=== PATIENT | male | born 1950 | race Caucasian/White ===

== ENCOUNTER 2020-06-15 10:48 | Emergency (ER) | payer MEDICARE, BC ==
[~2020-06-15] VITALS: Ht 172.7 cm; Wt 120.0 kg
--- NOTE | 2020-06-15 11:15 | PHYS DOC ---
Past History Past Medical History: Anemia, CAD, Diabetes, DVT, High Cholesterol, Hypertension, Hypothyroid, Renal Disease (Stage 3) Additional Past Medical Histor: Parkinsonism, Factor V leiden, Sleep apnea, Steatosis of liver Additional Past Surgical Histo: B shoulder, trigger fingers Smoking: Quit Greater Than 1 Year Alcohol Use: None Drug Use: None General Adult EDM: Chief Complaint: SHORTNESS OF BREATH HPI: HPI: Patient is a [age] year old [sex] who presents with [] Review of Systems: Review of Systems: Constitutional: Denies fever or chills Eyes: Denies redness or eye pain HENT: Denies nasal congestion or sore throat Respiratory: Denies cough or shortness of breath Cardiovascular: Denies chest pain or palpitations GI: Denies abdominal pain, nausea, or vomiting : Denies dysuria or hematuria Musculoskeletal: Denies back pain or joint pain Integument: Denies rash or skin lesions Neurologic: Denies headache, focal weakness or sensory changes Complete systems were reviewed and found to be within normal limits, except as documented in this note. Heart Score: Risk Factors: Risk Factors: DM, Current or recent (<one month) smoker, HTN, HLP, family history of CAD, obesity. Risk Scores: Score 0 - 3: 2.5% MACE over next 6 weeks - Discharge Home Score 4 - 6: 20.3% MACE over next 6 weeks - Admit for Clinical Observation Score 7 - 10: 72.7% MACE over next 6 weeks - Early Invasive Strategies Current Medications: Current Meds: Current Medications Medications (Trade) Dose Ordered Sig/Alyse Start Time Stop Time Status Last Admin Dose Admin Dexamethasone Sodium Phosphate (Decadron) 10 mg 1X ONCE 06/15/20 11:15 06/15/20 11:16 UNV Sodium Chloride 1,000 ml @ 1,000 mls/hr 1X ONCE 06/15/20 11:00 06/15/20 11:59 UNV Physical Exam: PE: Constitutional: Well developed, well nourished, no acute distress, non-toxic appearance HENT: Normocephalic, atraumatic Eyes: PERRL, EOMI, conjunctiva normal, no discharge Neck: Normal range of motion, no tenderness, supple Lungs & Thorax: No respiratory distress, equal chest rise and fall Abdomen: Soft, no tenderness Skin: Warm, dry, no erythema, no rash Back: No tenderness, no CVA tenderness Extremities: No tenderness, ROM intact, no edema Neurologic: Alert and oriented X 3, normal motor function, normal sensory function, no focal deficits noted Psychologic: Affect normal, judgment normal EKG: EKG: @1147 NSR at 73bpm, NO ST elevation, QRS 100ms, QT/QTc 404/449ms Radiology/Procedures: Radiology/Procedures: PROCEDURE: CHEST AP ONLY CHEST AP ONLY History: Reason: dyspnea, hypoxia, COVID + / Spl. Instructions: / History: Comparison: None. Findings:Multifocal ill-defined and patchy pulmonary opacities bilaterally. Possible small right pleural effusion. No pneumothorax. Enlarged cardiac size. Impression: 1. Multifocal pulmonary opacities, may represent pneumonia including viral pneumonia. 2. Possible small right pleural effusion. Electronically signed by: Vic Hernandez DO (06/15/2020 12:30 PM) [id number] Course & Med Decision Making: Course & Med Decision Making Pertinent Labs and Imaging studies reviewed. (See chart for details) [] Dragon Disclaimer: Dragfausto Disclaimer: This electronic medical record was generated, in whole or in part, using a voice recognition dictation system. Departure Departure: Impression: Primary Impression: COVID-19 Additional Impressions: Hypoxia Lactic acidosis Hx of factor V Leiden mutation Disposition: 05 TRANSFER OTHER ([facility]) Admitting Physician: Falguni Herr Condition: GUARDED Referrals: KATRINA GRIFFIN (PCP) COVID-19 Assessment COVID-19 Patient Risks: Age 65 or older: Yes Sign of co-morbidity: Yes Exp to person + for COVID: Yes Exp to PUI: No Travel from affected area: No Lower respiratory symptoms: Yes Fever: Yes Other: Yes PPE Use: Full PPE with N95 mask or PAPR: Yes Critical Care Time Critical care time was 30 minutes which includes time at bedside, spent in discussion of patient's care with specialists and/or family members, with interpretation of laboratory and/or radiological studies and is exclusive of procedures. ROBER WEBB DO Jun 15, 2020 11:15
[2020-06-15 11:40] LABS: BASO % 0 % (0-3); EOS % 0 % (0-3); HEMATOCRIT 28.3 % (39.0-53.0); HEMOGLOBIN 9.4 g/dL (13.0-17.5); LYMPH # 0.5 x10^3/uL (1.0-4.8); LYMPH % 9 % (24-48); MEAN CORPUSCULAR HEMOGLOBIN 30 pg (25-35); MEAN CORPUSCULAR HGB CONC 33 g/dL (31-37); MEAN CORPUSCULAR VOLUME 91 fL (79-100); MONO # 0.4 x10^3/uL (0.0-1.1); MONO % 6 % (0-9); NEUT # 5.5 x10^3uL (1.8-7.7); NEUT % 86 % (31-73); PLATELET COUNT 254 x10^3/uL (140-400); RED BLOOD COUNT 3.11 x10^6/uL (4.30-5.70); RED CELL DISTRIBUTION WIDTH 15.3 % (11.5-14.5); WHITE BLOOD COUNT 6.5 x10^3/uL (4.0-11.0)
[2020-06-15 11:54] LABS: CALCIUM 8.3 mg/dL (8.5-10.1); CREATININE 2.4 mg/dL (0.7-1.3); GFR 26.7; POTASSIUM 4.3 mmol/L (3.5-5.1)
[2020-06-15 12:11] LABS: ALBUMIN 2.5 g/dL (3.4-5.0); ALBUMIN/GLOBULIN RATIO 0.5 (1.0-1.7); MAGNESIUM 2.4 mg/dL (1.8-2.4); TOTAL BILIRUBIN 0.9 mg/dL (0.2-1.0); TOTAL PROTEIN 7.8 g/dL (6.4-8.2)
[2020-06-15] MEDS ORDERED: VANCOMYCIN PER PHARMACY MC PRN (12:30)
[2020-06-15] MEDS ORDERED: IV NORMAL SALINE 1,000ML 1,000 ML IV ONE (12:30)
--- NOTE | 2020-06-15 12:33 | RAD ---
CHEST AP ONLY History: Reason: dyspnea, hypoxia, COVID + / Spl. Instructions: / History: Comparison: None. Findings:Multifocal ill-defined and patchy pulmonary opacities bilaterally. Possible small right pleural effusion. No pneumothorax. Enlarged cardiac size. Impression: 1. Multifocal pulmonary opacities, may represent pneumonia including viral pneumonia. 2. Possible small right pleural effusion. Electronically signed by: Vic Hernandez DO (06/15/2020 12:30 PM) [id number]
[2020-06-15] MEDS: VANCOMYCIN 2 GM in IV NORMAL SALINE 500ML 500 ML IV ONE (13:00)
[2020-06-15] MEDS ORDERED: ACETAMINOPHEN 325 MG TABLET PO PRN (13:00)
[2020-06-15] MEDS ORDERED: DEXTROSE 50% 25 GM / 50ML DISP.SYRIN. IV PRN (13:00)
[2020-06-15] MEDS ORDERED: ONDANSETRON PF 4 MG/2 ML VIAL. IVP PRN (13:00)
[2020-06-15] MEDS ORDERED: PIPERACILLIN/TAZOBACTAM 4.5 GM VIAL IV ONE (13:11)
[2020-06-15] MEDS ORDERED: IV NORMAL SALINE 50ML 50 ML ONE ×2 (13:11→13:15)
[2020-06-15] MEDS: PIPERACILLIN/TAZOBACTAM 4.5 GM in IV NORMAL SALINE 50ML 50 ML IV ONE (13:22)
[2020-06-15] MEDS: DEXAMETHASONE SOD PHOS 10 MG/ML VIAL. IV ONE (13:23)
--- NOTE | 2020-06-15 13:30 | RAD ---
Bilateral lower extremity venous doppler ultrasound History: Hypoxia, chronic leg swelling, history of DVT and factor V Leiden abnormality Comparison: None Findings: Multiple grayscale, color, and duplex spectral analysis sonographic images were acquired of the bilateral lower extremity veins to evaluate for the presence of DVT. There is normal phasicity. Normal compression, color-flow, and augmentation is demonstrated from the bilateral common femoral to the popliteal veins. There is normal color flow of the proximal greater saphenous and profunda femoris veins. There is normal color flow of segments of the calf veins. Impression: 1. There is no evidence of deep venous thrombosis from the bilateral common femoral to the popliteal veins. Electronically signed by: Bashir James MD (06/15/2020 1:27 PM) [facility]
[2020-06-15] MEDS: IPRATRPIUM/ALBUTEROL 0.5/2.5MG 3 ML NEBU. NEB ONE (15:00)
[2020-06-15] MEDS ORDERED: INSULIN LISPRO 300 UNITS/3 ML VIAL. SQ SCH (17:00)
[2020-06-15] MEDS: IV NORMAL SALINE 1,000ML 1,000 ML IV ONE (17:16)
[2020-06-15] MEDS: CARBIDOPA/LEVODOPA 25/100MG TABLET PO ONE (17:26)
[2020-06-15 18:29] VITALS: BP 115/41
[2020-06-15 18:57] LABS: BGAS PH 7.4 (7.35-7.46)
--- NOTE | 2020-06-15 21:08 | EKG ---
[address] [address] Test Date: 2020-06-15 Test Time: 11:47:51 Pat Name: CELINE TAPIA Department: Room: Gender: M Cloth Neutralizer: RAVEN : 1950 Requested By: ROBER WEBB Order Number: [id number] Reading MD: Measurements Intervals [place] Rate: 73 P: 38 [place]: 254 QRS: -1 QRSD: 100 T: 30 QT: 404 QTc: 449 Interpretive Statements SINUS RHYTHM PROLONGED [place] INTERVAL LEFTWARD AXIS ABNORMAL ECG RI6.02 No previous ECG available for comparison
== END 2020-06-15 18:43 | disposition short-term general hospital (02) ==
LOC: ER 10:48 → 1 SOUTH 12:40 → UNDOADMIN 12:40 → ER 18:43
DX: U07.1 COVID-19 (principal); R09.02 Hypoxemia; E87.2 Acidosis; E78.00 Pure hypercholesterolemia, unspecified; E03.9 Hypothyroidism, unspecified; E11.22 Type 2 diabetes mellitus with diabetic chronic kidney disease; I12.9 Hypertensive chronic kidney disease with stage 1 through stage 4 chronic kidney disease, or unspecified chronic kidney disease; N18.30 Chronic kidney disease, stage 3 unspecified; Z86.718 Personal history of other venous thrombosis and embolism; Z86.2 Personal history of diseases of the blood and blood-forming organs and certain disorders involving the immune mechanism; Z87.891 Personal history of nicotine dependence
CPT/HCPCS: 36415; 36600; 71045; 80053; 82553; 82803; 83605; 83735; 83880; 84484; 85025; 85610; 85730; 87040; 93005; 93970; 94640; 96361; 96365; 96366; 96368; 96375; 99285; J1100; J2543; J3370; J7030; J7040